=== PATIENT | male | born 1995 | race Caucasian/White ===

== ENCOUNTER 2018-12-07 10:46 | Inpatient (IN) | payer OTHER ==
[~2018-12-07] VITALS: Ht 180.3 cm; Wt 62.6 kg
[2018-12-07 15:00] VITALS: BP 92/54
[2018-12-07] MEDS ORDERED: DOCUSATE SODIUM 100 MG CAPSULE PO PRN (16:15)
[2018-12-07] MEDS ORDERED: INSULIN LISPRO 100 UNITS/ML SQ PRN ×2 (16:15)
[2018-12-07] MEDS ORDERED: DEXTROSE 50%-WATER 25 GM/50 ML SYRINGE IVP PRN ×2 (16:15)
[2018-12-07] MEDS ORDERED: MELATONIN 3 MG TABLET PO PRN (18:00)
[2018-12-07] MEDS: GuaiFENesin SR 600 MG ER TABLET PO SCH (20:03)
[2018-12-07] MEDS: BENZONATATE 100 MG CAPSULE PO SCH (20:03)
[2018-12-07] MEDS: ACETAMINOPHEN 325 MG TABLET PO PRN (20:05)
[2018-12-07 20:13] VITALS: BP 112/55
[2018-12-08] VITALS: BP 96/55
[2018-12-08] MEDS: ACETAMINOPHEN 325 MG TABLET PO PRN (05:05)
[2018-12-08 07:40] VITALS: BP 110/63
[2018-12-08 08:24] LABS: BASOPHILS % (AUTO) 0.3 % (0.0-2.0); EOSINOPHILS % (AUTO) 2.5 % (1.0-6.0); HEMATOCRIT 39.2 % (41-53); HEMOGLOBIN 13.7 g/dL (13.5-17.5); LYMPHOCYTES # (AUTO) 1.5 K/uL (1.0-4.8); MEAN CORPUSCULAR HEMOGLOBIN 31.5 pg (26.0-34.0); MEAN CORPUSCULAR HGB CONC 34.9 G/dL (31.0-37.0); MEAN CORPUSCULAR VOLUME 90 fL (80-100); MONOCYTES # (AUTO) 1.1 K/uL (0.1-1.0); MONOCYTES % (AUTO) 10.6 % (2.0-9.0); NEUTROPHILS # (AUTO) 7.6 K/uL (1.8-7.7); NEUTROPHILS % (AUTO) 72.6 % (40.0-70.0); PLATELET COUNT (AUTO) 316 K/uL (150-450); RED BLOOD CELL COUNT(AUTO) 4.35 MIL/uL (4.50-5.90); RED CELL DISTRIBUTION WIDTH 13.2 % (11.5-14.5)
[2018-12-08] MEDS: BENZONATATE 100 MG CAPSULE PO SCH ×3 (08:39→20:36)
[2018-12-08] MEDS: ASPIRIN 325 MG TABLET PO SCH (08:39)
[2018-12-08] MEDS: GuaiFENesin SR 600 MG ER TABLET PO SCH ×2 (08:39→20:37)
[2018-12-08] MEDS: CLOPIDOGREL BISULFATE 75 MG TABLET PO SCH (08:39)
[2018-12-08] MEDS: LEVOFLOXACIN 250 MG TABLET PO SCH (08:40)
[2018-12-08 08:41] LABS: ALANINE AMINOTRANSFERASE 259 U/L (12-78); ALBUMIN 2.8 g/dL (3.4-5.0); ALKALINE PHOSPHATASE 105 U/L (46-116); ANION GAP 6 mmol/L (8-16); ASPARTATE AMINOTRANSFERASE 94 U/L (15-37); BILIRUBIN,TOTAL 0.3 mg/dL (0.1-1.0); CALCIUM, TOTAL 9.2 mg/dL (8.8-10.5); CARBON DIOXIDE 32 mmol/L (22-29); CHLORIDE 97 mmol/L (98-107); CREATININE 0.91 mg/dL (0.60-1.30); GLOMERULAR FILTR. RATE CALC > 60 mL/min (>60); GLUCOSE,RANDOM 93 mg/dL (70-110); POTASSIUM 4.5 mmol/L (3.5-5.1); SODIUM SERUM 135 mmol/L (136-145); TOTAL PROTEIN, SERUM 7.9 g/dL (6.4-8.2); UREA NITROGEN, BLOOD 12 mg/dL (7-18)
[2018-12-08] MEDS: ENOXAPARIN SODIUM 40 MG/0.4 ML PF SYRINGE SQ SCH (08:41)
[2018-12-08] MEDS: DOCUSATE SODIUM 100 MG CAPSULE PO SCH ×2 (08:41→20:37)
[2018-12-08] MEDS ORDERED: MAGNESIUM HYDROXIDE SUSPENSION 30 ML UDCUP PO PRN (10:30)
[2018-12-08] MEDS ORDERED: BENZOCAINE/MENTHOL LOZENGE PO PRN (13:00)
[2018-12-08 16:55] VITALS: BP 105/63
[2018-12-08] MEDS: SENNA 187 MG TABLET PO SCH (20:37)
[2018-12-09 00:30] VITALS: BP 105/64
[2018-12-09 07:04] LABS: BASOPHILS % (AUTO) 0.4 % (0.0-2.0); EOSINOPHILS % (AUTO) 1.5 % (1.0-6.0); HEMATOCRIT 37.9 % (41-53); HEMOGLOBIN 13.4 g/dL (13.5-17.5); LYMPHOCYTES # (AUTO) 1.5 K/uL (1.0-4.8); LYMPHOCYTES % (AUTO) 18.1 % (22.0-44.0); MEAN CORPUSCULAR HEMOGLOBIN 31.8 pg (26.0-34.0); MEAN CORPUSCULAR HGB CONC 35.3 G/dL (31.0-37.0); MEAN CORPUSCULAR VOLUME 90 fL (80-100); MONOCYTES # (AUTO) 1.1 K/uL (0.1-1.0); MONOCYTES % (AUTO) 13.4 % (2.0-9.0); NEUTROPHILS # (AUTO) 5.6 K/uL (1.8-7.7); NEUTROPHILS % (AUTO) 66.6 % (40.0-70.0); PLATELET COUNT (AUTO) 300 K/uL (150-450); RED CELL DISTRIBUTION WIDTH 13.5 % (11.5-14.5)
[2018-12-09 07:24] LABS: ALANINE AMINOTRANSFERASE 191 U/L (12-78); ALBUMIN 2.8 g/dL (3.4-5.0); ALKALINE PHOSPHATASE 102 U/L (46-116); ANION GAP 6 mmol/L (8-16); ASPARTATE AMINOTRANSFERASE 57 U/L (15-37); BILIRUBIN,TOTAL 0.3 mg/dL (0.1-1.0); CALCIUM, TOTAL 8.9 mg/dL (8.8-10.5); CARBON DIOXIDE 32 mmol/L (22-29); CHLORIDE 97 mmol/L (98-107); GLOMERULAR FILTR. RATE CALC > 60 mL/min (>60); GLUCOSE,RANDOM 90 mg/dL (70-110); POTASSIUM 4.4 mmol/L (3.5-5.1); SODIUM SERUM 135 mmol/L (136-145); TOTAL PROTEIN, SERUM 7.2 g/dL (6.4-8.2); UREA NITROGEN, BLOOD 12 mg/dL (7-18)
[2018-12-09 07:30] VITALS: BP 110/60
[2018-12-09] MEDS: ENOXAPARIN SODIUM 40 MG/0.4 ML PF SYRINGE SQ SCH (08:00)
[2018-12-09] MEDS: ASPIRIN 325 MG TABLET PO SCH (08:00)
[2018-12-09] MEDS: BENZONATATE 100 MG CAPSULE PO SCH ×3 (08:01→20:01)
[2018-12-09] MEDS: DOCUSATE SODIUM 100 MG CAPSULE PO SCH ×2 (08:01→20:01)
[2018-12-09] MEDS: CLOPIDOGREL BISULFATE 75 MG TABLET PO SCH (08:01)
[2018-12-09] MEDS: GuaiFENesin SR 600 MG ER TABLET PO SCH ×2 (08:01→20:01)
[2018-12-09] MEDS: LEVOFLOXACIN 250 MG TABLET PO SCH (08:01)
[2018-12-09] MEDS ORDERED: MAGNESIUM OXIDE 400 MG TABLET PO ONE (08:45)
[2018-12-09 16:09] VITALS: BP 104/60
[2018-12-09] MEDS: SENNA 187 MG TABLET PO SCH (20:02)
[2018-12-10 06:23] VITALS: BP 98/56
[2018-12-10 07:01] LABS: ALANINE AMINOTRANSFERASE 159 U/L (12-78); ALBUMIN 2.6 g/dL (3.4-5.0); ALKALINE PHOSPHATASE 93 U/L (46-116); ANION GAP 4 mmol/L (8-16); ASPARTATE AMINOTRANSFERASE 54 U/L (15-37); BILIRUBIN,TOTAL 0.2 mg/dL (0.1-1.0); CALCIUM, TOTAL 8.9 mg/dL (8.8-10.5); CARBON DIOXIDE 32 mmol/L (22-29); CHLORIDE 97 mmol/L (98-107); CREATININE 0.78 mg/dL (0.60-1.30); GLOMERULAR FILTR. RATE CALC > 60 mL/min (>60); GLUCOSE,RANDOM 88 mg/dL (70-110); POTASSIUM 4.1 mmol/L (3.5-5.1); SODIUM SERUM 133 mmol/L (136-145); TOTAL PROTEIN, SERUM 7.5 g/dL (6.4-8.2); UREA NITROGEN, BLOOD 11 mg/dL (7-18)
[2018-12-10 08:12] VITALS: BP 92/61
[2018-12-10] MEDS: ASPIRIN 325 MG TABLET PO SCH (08:38)
[2018-12-10] MEDS: BENZONATATE 100 MG CAPSULE PO SCH ×3 (08:38→20:21)
[2018-12-10] MEDS: LEVOFLOXACIN 250 MG TABLET PO SCH (08:38)
[2018-12-10] MEDS: GuaiFENesin SR 600 MG ER TABLET PO SCH ×2 (08:38→20:21)
[2018-12-10] MEDS: CLOPIDOGREL BISULFATE 75 MG TABLET PO SCH (08:38)
[2018-12-10] MEDS: SODIUM CHLORIDE 1 GM TABLET PO SCH ×2 (08:38→20:21)
[2018-12-10] MEDS: ENOXAPARIN SODIUM 40 MG/0.4 ML PF SYRINGE SQ SCH (08:38)
[2018-12-10] MEDS: LACTOBACILLUS ACIDOPHILUS/BULGARICUS TABLET PO SCH (08:39)
[2018-12-10] MEDS: DOCUSATE SODIUM 100 MG CAPSULE PO SCH (08:39)
[2018-12-10 13:00] VITALS: BP 108/57
[2018-12-10 16:01] VITALS: BP 101/58
[2018-12-10] MEDS: SENNA 187 MG TABLET PO SCH (20:21)
[2018-12-10] MEDS: DOCUSATE SODIUM 250 MG CAPSULE PO SCH (20:21)
[2018-12-11 06:02] VITALS: BP 99/59
[2018-12-11 07:00] VITALS: BP 102/58
[2018-12-11] MEDS: DOCUSATE SODIUM 250 MG CAPSULE PO SCH ×2 (08:52→21:01)
[2018-12-11] MEDS: GuaiFENesin SR 600 MG ER TABLET PO SCH ×2 (08:53→21:01)
[2018-12-11] MEDS: BENZONATATE 100 MG CAPSULE PO SCH ×3 (08:53→21:01)
[2018-12-11] MEDS: CLOPIDOGREL BISULFATE 75 MG TABLET PO SCH (08:53)
[2018-12-11] MEDS: ASPIRIN 325 MG TABLET PO SCH (08:54)
[2018-12-11] MEDS: ENOXAPARIN SODIUM 40 MG/0.4 ML PF SYRINGE SQ SCH (08:55)
[2018-12-11] MEDS: LACTOBACILLUS ACIDOPHILUS/BULGARICUS TABLET PO SCH (08:56)
[2018-12-11] MEDS: SODIUM CHLORIDE 1 GM TABLET PO SCH ×2 (08:57→21:01)
[2018-12-11] MEDS: LEVOFLOXACIN 250 MG TABLET PO SCH (08:58)
[2018-12-11 16:01] VITALS: BP 101/46
[2018-12-11] MEDS: POLYETHYLENE GLYCOL 3350 17 GM PACKET PO SCH (16:33)
[2018-12-11 18:05] VITALS: BP 103/59
[2018-12-12 05:57] VITALS: BP 110/56
[2018-12-12 07:30] VITALS: BP 100/65
[2018-12-12] MEDS: DOCUSATE SODIUM 250 MG CAPSULE PO SCH ×2 (07:57→20:09)
[2018-12-12] MEDS: CLOPIDOGREL BISULFATE 75 MG TABLET PO SCH (07:57)
[2018-12-12] MEDS: SODIUM CHLORIDE 1 GM TABLET PO SCH ×2 (07:57→20:09)
[2018-12-12] MEDS: ASPIRIN 325 MG TABLET PO SCH (07:58)
[2018-12-12] MEDS: LEVOFLOXACIN 250 MG TABLET PO SCH (07:58)
[2018-12-12] MEDS: POLYETHYLENE GLYCOL 3350 17 GM PACKET PO SCH (07:59)
[2018-12-12] MEDS: ENOXAPARIN SODIUM 40 MG/0.4 ML PF SYRINGE SQ SCH (07:59)
[2018-12-12] MEDS: BENZONATATE 100 MG CAPSULE PO SCH ×3 (07:59→20:09)
[2018-12-12] MEDS: GuaiFENesin SR 600 MG ER TABLET PO SCH ×2 (08:48→20:09)
[2018-12-12 16:09] VITALS: BP 103/58
[2018-12-13 00:30] VITALS: BP 91/55
[2018-12-13 07:53] VITALS: BP 105/68
[2018-12-13] MEDS: POLYETHYLENE GLYCOL 3350 17 GM PACKET PO SCH (09:00)
[2018-12-13] MEDS: GuaiFENesin SR 600 MG ER TABLET PO SCH ×2 (09:00→19:28)
[2018-12-13] MEDS: SODIUM CHLORIDE 1 GM TABLET PO SCH ×2 (09:02→19:28)
[2018-12-13] MEDS: ASPIRIN 325 MG TABLET PO SCH (09:02)
[2018-12-13] MEDS: DOCUSATE SODIUM 250 MG CAPSULE PO SCH ×2 (09:02→19:28)
[2018-12-13] MEDS: CLOPIDOGREL BISULFATE 75 MG TABLET PO SCH (09:02)
[2018-12-13] MEDS: ENOXAPARIN SODIUM 40 MG/0.4 ML PF SYRINGE SQ SCH (09:03)
[2018-12-13 15:40] VITALS: BP 99/53
[2018-12-13] MEDS: BENZONATATE 100 MG CAPSULE PO SCH (19:28)
[2018-12-14] VITALS: BP 93/60
[2018-12-14 08:50] VITALS: BP 97/53
[2018-12-14] MEDS: ASPIRIN 325 MG TABLET PO SCH (09:47)
[2018-12-14] MEDS: GuaiFENesin SR 600 MG ER TABLET PO SCH ×2 (09:48→19:35)
[2018-12-14] MEDS: DOCUSATE SODIUM 250 MG CAPSULE PO SCH ×2 (09:48→19:35)
[2018-12-14] MEDS: ENOXAPARIN SODIUM 40 MG/0.4 ML PF SYRINGE SQ SCH (09:48)
[2018-12-14] MEDS: CLOPIDOGREL BISULFATE 75 MG TABLET PO SCH (09:48)
[2018-12-14] MEDS: POLYETHYLENE GLYCOL 3350 17 GM PACKET PO SCH (09:48)
[2018-12-14] MEDS: SODIUM CHLORIDE 1 GM TABLET PO SCH ×2 (09:48→19:36)
[2018-12-14 16:49] VITALS: BP 103/57
[2018-12-14] MEDS: ACETAMINOPHEN 325 MG TABLET PO PRN (17:43)
[2018-12-14] MEDS: BENZONATATE 100 MG CAPSULE PO SCH (19:35)
[2018-12-14] MEDS ORDERED: GUAI600T30 PO (20:17)
[2018-12-14] MEDS ORDERED: CLOP75TA17 PO (20:17)
[2018-12-14] MEDS ORDERED: BENZ-51 PO (20:17)
[2018-12-14] MEDS ORDERED: ASPI-989 PO (20:17)
[2018-12-14] MEDS ORDERED: DOCU250C91 PO (20:17)
[2018-12-14] MEDS ORDERED: NACL1 PO (20:19)
[2018-12-14] MEDS ORDERED: POLY238P2 PO (20:19)
[2018-12-15 03:00] VITALS: BP 92/55
[2018-12-15 07:25] VITALS: BP 97/57
[2018-12-15] MEDS: GuaiFENesin SR 600 MG ER TABLET PO SCH (07:58)
[2018-12-15] MEDS: SODIUM CHLORIDE 1 GM TABLET PO SCH ×2 (07:58→20:18)
[2018-12-15] MEDS: POLYETHYLENE GLYCOL 3350 17 GM PACKET PO SCH (07:58)
[2018-12-15] MEDS: CLOPIDOGREL BISULFATE 75 MG TABLET PO SCH (07:58)
[2018-12-15] MEDS: ENOXAPARIN SODIUM 40 MG/0.4 ML PF SYRINGE SQ SCH (07:58)
[2018-12-15] MEDS: ASPIRIN 325 MG TABLET PO SCH (07:58)
[2018-12-15] MEDS: DOCUSATE SODIUM 250 MG CAPSULE PO SCH ×2 (07:58→20:18)
[2018-12-15] MEDS ORDERED: GuaiFENesin SR 600 MG ER TABLET PO PRN (11:15)
[2018-12-15] MEDS ORDERED: BENZONATATE 100 MG CAPSULE PO PRN (11:15)
[2018-12-15 15:35] VITALS: BP 98/55
[2018-12-16 00:47] VITALS: BP 102/59
[2018-12-16] MEDS: ACETAMINOPHEN 325 MG TABLET PO PRN ×2 (00:47→08:32)
[2018-12-16 07:15] VITALS: BP 98/55
[2018-12-16 07:27] LABS: ANION GAP 3 mmol/L (8-16); CALCIUM, TOTAL 8.9 mg/dL (8.8-10.5); CARBON DIOXIDE 34 mmol/L (22-29); CHLORIDE 101 mmol/L (98-107); CREATININE 0.93 mg/dL (0.60-1.30); GLOMERULAR FILTR. RATE CALC > 60 mL/min (>60); GLUCOSE,RANDOM 83 mg/dL (70-110); POTASSIUM 4.5 mmol/L (3.5-5.1); SODIUM SERUM 138 mmol/L (136-145); UREA NITROGEN, BLOOD 17 mg/dL (7-18)
[2018-12-16] MEDS: SODIUM CHLORIDE 1 GM TABLET PO SCH ×2 (08:01→20:55)
[2018-12-16] MEDS: ENOXAPARIN SODIUM 40 MG/0.4 ML PF SYRINGE SQ SCH (08:01)
[2018-12-16] MEDS: ASPIRIN 325 MG TABLET PO SCH (08:01)
[2018-12-16] MEDS: CLOPIDOGREL BISULFATE 75 MG TABLET PO SCH (08:01)
[2018-12-16] MEDS: DOCUSATE SODIUM 250 MG CAPSULE PO SCH ×2 (08:01→20:55)
[2018-12-16] MEDS: POLYETHYLENE GLYCOL 3350 17 GM PACKET PO SCH (08:01)
[2018-12-16 16:01] VITALS: BP 96/59
[2018-12-16] MEDS: CARBAMIDE PEROXIDE 6.5% 15 ML OTIC SOLUTION AS SCH (20:56)
[2018-12-17 02:00] VITALS: BP 90/48
[2018-12-17 05:00] VITALS: BP 90/56
[2018-12-17 07:42] VITALS: BP 102/56
[2018-12-17] MEDS: CLOPIDOGREL BISULFATE 75 MG TABLET PO SCH (08:00)
[2018-12-17] MEDS: ASPIRIN 325 MG TABLET PO SCH (08:00)
[2018-12-17] MEDS: POLYETHYLENE GLYCOL 3350 17 GM PACKET PO SCH (08:00)
[2018-12-17] MEDS: DOCUSATE SODIUM 250 MG CAPSULE PO SCH ×2 (08:00→21:33)
[2018-12-17] MEDS: CARBAMIDE PEROXIDE 6.5% 15 ML OTIC SOLUTION AS SCH ×2 (08:02→21:35)
[2018-12-17] MEDS: SODIUM CHLORIDE 1 GM TABLET PO SCH (09:31)
[2018-12-17 15:15] VITALS: BP 101/64
[2018-12-18 06:00] VITALS: BP 98/59
[2018-12-18 08:09] VITALS: BP 102/54
[2018-12-18] MEDS: POLYETHYLENE GLYCOL 3350 17 GM PACKET PO SCH (09:00)
[2018-12-18] MEDS: DOCUSATE SODIUM 250 MG CAPSULE PO SCH ×2 (09:00→21:00)
[2018-12-18] MEDS: CARBAMIDE PEROXIDE 6.5% 15 ML OTIC SOLUTION AS SCH ×2 (10:05→21:22)
[2018-12-18] MEDS: CLOPIDOGREL BISULFATE 75 MG TABLET PO SCH (10:05)
[2018-12-18] MEDS: ASPIRIN 325 MG TABLET PO SCH (10:05)
[2018-12-18 16:15] VITALS: BP 103/54
[2018-12-19 05:30] VITALS: BP 106/67
[2018-12-19 06:41] LABS: BASOPHILS % (AUTO) 0.3 % (0.0-2.0); EOSINOPHILS % (AUTO) 4.9 % (1.0-6.0); HEMATOCRIT 36.6 % (41-53); HEMOGLOBIN 12.9 g/dL (13.5-17.5); LYMPHOCYTES # (AUTO) 1.7 K/uL (1.0-4.8); LYMPHOCYTES % (AUTO) 29.6 % (22.0-44.0); MEAN CORPUSCULAR HEMOGLOBIN 32.1 pg (26.0-34.0); MEAN CORPUSCULAR HGB CONC 35.3 G/dL (31.0-37.0); MEAN CORPUSCULAR VOLUME 91 fL (80-100); MONOCYTES # (AUTO) 0.7 K/uL (0.1-1.0); MONOCYTES % (AUTO) 12.8 % (2.0-9.0); NEUTROPHILS # (AUTO) 3.1 K/uL (1.8-7.7); NEUTROPHILS % (AUTO) 52.4 % (40.0-70.0); PLATELET COUNT (AUTO) 272 K/uL (150-450); RED BLOOD CELL COUNT(AUTO) 4.02 MIL/uL (4.50-5.90); RED CELL DISTRIBUTION WIDTH 14.2 % (11.5-14.5)
[2018-12-19 06:52] LABS: ALANINE AMINOTRANSFERASE 105 U/L (12-78); ALBUMIN 3.1 g/dL (3.4-5.0); ALKALINE PHOSPHATASE 89 U/L (46-116); ANION GAP 1 mmol/L (8-16); ASPARTATE AMINOTRANSFERASE 47 U/L (15-37); BILIRUBIN,TOTAL 0.2 mg/dL (0.1-1.0); CALCIUM, TOTAL 8.9 mg/dL (8.8-10.5); CARBON DIOXIDE 34 mmol/L (22-29); CHLORIDE 104 mmol/L (98-107); CREATININE 0.91 mg/dL (0.60-1.30); GLOMERULAR FILTR. RATE CALC > 60 mL/min (>60); GLUCOSE,RANDOM 70 mg/dL (70-110); POTASSIUM 4.3 mmol/L (3.5-5.1); SODIUM SERUM 139 mmol/L (136-145); TOTAL PROTEIN, SERUM 6.7 g/dL (6.4-8.2); UREA NITROGEN, BLOOD 23 mg/dL (7-18)
[2018-12-19 08:00] VITALS: BP 98/59
[2018-12-19] MEDS: ASPIRIN 325 MG TABLET PO SCH (08:18)
[2018-12-19] MEDS: CLOPIDOGREL BISULFATE 75 MG TABLET PO SCH (08:18)
[2018-12-19] MEDS: CARBAMIDE PEROXIDE 6.5% 15 ML OTIC SOLUTION AS SCH ×2 (09:00→21:00)
[2018-12-19] MEDS: POLYETHYLENE GLYCOL 3350 17 GM PACKET PO SCH (09:00)
[2018-12-19] MEDS: DOCUSATE SODIUM 250 MG CAPSULE PO SCH ×2 (09:00→21:00)
[2018-12-19 16:22] VITALS: BP 102/58
[2018-12-20 05:30] VITALS: BP 97/52
[2018-12-20] MEDS: ASPIRIN 325 MG TABLET PO SCH (08:46)
[2018-12-20] MEDS: CLOPIDOGREL BISULFATE 75 MG TABLET PO SCH (08:46)
[2018-12-20] MEDS: POLYETHYLENE GLYCOL 3350 17 GM PACKET PO SCH (09:00)
[2018-12-20] MEDS: DOCUSATE SODIUM 250 MG CAPSULE PO SCH (09:00)
[2018-12-20 09:43] VITALS: BP 97/58
== END 2018-12-20 12:35 | disposition home or self-care (01) | DRG 64 ==
LOC: 2WR 13:00
DX: I63.9 Cerebral infarction, unspecified (principal); I77.74 Dissection of vertebral artery; J14 Pneumonia due to Hemophilus influenzae; I69.354 Hemiplegia and hemiparesis following cerebral infarction affecting left non-dominant side; Q21.1 Atrial septal defect; J32.9 Chronic sinusitis, unspecified; E83.42 Hypomagnesemia; G47.00 Insomnia, unspecified; H53.40 Unspecified visual field defects; R13.12 Dysphagia, oropharyngeal phase; F43.21 Adjustment disorder with depressed mood; J02.9 Acute pharyngitis, unspecified; R27.0 Ataxia, unspecified; H92.02 Otalgia, left ear; K59.00 Constipation, unspecified; Z79.02 Long term (current) use of antithrombotics/antiplatelets; Z79.82 Long term (current) use of aspirin; Z82.49 Family history of ischemic heart disease and other diseases of the circulatory system
CPT/HCPCS: 83735; 84145; 86038; 86256; 87070; 87081; 92507; 92508; 92523; 93005; 93306; 97110; 97112; 97116; 97150; 97162; 97166; 97530; 97535; 99366; J1650